=== PATIENT | female | born 1945 | race Hispanic/Latino ===

== ENCOUNTER 2017-08-20 18:29 | Emergency (ER) | payer MEDICARE, BC ==
[2017-08-20 18:40] VITALS: BMI 25.7
[2017-08-20 18:43] VITALS: TEMP 98.3
--- NOTE | 2017-08-20 19:07 | ED PDOC ---
Arrival/HPI <SalbadorNéstor - Last Filed: 08/20/17 21:02> <Julian Farr - Last Filed: 08/20/17 21:12> - General Chief Complaint: Trauma Time Seen by Provider: 08/20/17 18:47 - History of Present Illness Narrative History of Present Illness (Text): PMD: Dr. Greene This patient is a 71yo F w/ a Past medical history of hypertension, hyperlipidemia, depression/anxiety who is coming to the ER after she was walking on the sidewalk and missed her step, fell and hit her head. She denies any loss of consciousness, chest pain, headache, changes in vision, changes in ambulation, changes in speech, abdominal pain, Nausea, vomiting, diarrhea, dysuria, or lower extremity pain. The patient is not on any blood thinners, takes aspirin 81mg daily. Lives at home, alone, walks with cane normally, states diet is good eating "keto" diet. ANOx3. Admits to peeing a little more frequently than previous. (Julian Farr) Past Medical History - Provider Review Nursing Documentation Reviewed: Yes <SalbadorNéstor - Last Filed: 08/20/17 21:02> - Infectious Disease Hx of Infectious Diseases: None - Reproductive Menopause: Yes - Cardiac Hx Cardiac Disorders: Yes Hx Hypertension: Yes Hx Pacemaker: No - Pulmonary Hx Respiratory Disorders: No - Neurological Hx Neurological Disorder: No Hx Paralysis: No - HEENT Hx HEENT Disorder: Yes Other/Comment: glasses - Renal Hx Renal Disorder: No - Endocrine/Metabolic Hx Endocrine Disorders: No - Hematological/Oncological Hx Blood Disorders: No Hx Blood Transfusions: No Hx Blood Transfusion Reaction: No - Integumentary Hx Dermatological Disorder: No - Musculoskeletal/Rheumatological Hx Musculoskeletal Disorders: Yes Hx Arthritis: Yes (walks with cane) - Gastrointestinal Hx Gastrointestinal Disorders: Yes Hx Gall Bladder Disease: Yes Hx Gastroesophageal Reflux: Yes - Genitourinary/Gynecological Hx Genitourinary Disorders: No - Psychiatric Hx Psychophysiologic Disorder: Yes Hx Anxiety: Yes Hx Depression: Yes Hx Emotional Abuse: No Hx Physical Abuse: No Hx Substance Use: No - Surgical History Hx Cholecystectomy: Yes - Anesthesia Hx Anesthesia: Yes Hx Anesthesia Reactions: No Hx Malignant Hyperthermia: No - Suicidal Assessment Feels Threatened In Home Enviroment: No <Julian Farr - Last Filed: 08/20/17 21:12> Family/Social History - Physician Review Nursing Documentation Reviewed: Yes Family/Social History: Unknown Family HX <Néstor Siu - Last Filed: 08/20/17 21:02> Smoking Status: Never Smoked Hx Alcohol Use: Yes (ON OCCASION SOCIALLY) Hx Substance Use: No <Julian Farr - Last Filed: 08/20/17 21:12> Allergies/Home Meds <Néstor Siu - Last Filed: 08/20/17 21:02> <ChikaJulian - Last Filed: 08/20/17 21:12> Allergies/Adverse Reactions: Allergies No Known Allergies Allergy (Verified 08/20/17 18:40) Home Medications: Home Meds Medication Instructions Recorded Confirmed Alprazolam [Xanax Xr] 0.5 mg PO TID PRN 11/28/15 08/20/17 Amlodipine Besylate [Norvasc] 5 mg PO QAM 11/28/15 08/20/17 Aspirin [Ecotrin] 81 mg PO QAM 11/28/15 08/20/17 Rosuvastatin Calcium [Crestor] 10 mg PO DAILY 11/28/15 08/20/17 Sertraline [Zoloft] 100 mg PO DAILY 11/28/15 08/20/17 buPROPion XL [Wellbutrin XL] 300 mg PO QAM 11/28/15 08/20/17 ALPRAZolam [Xanax] 1.5 mg PO DAILY 08/20/17 08/20/17 Esomeprazole Magnesium [Nexium] 40 mg PO DAILY 08/20/17 08/20/17 Review of Systems - Review of Systems Constitutional: absent: Fatigue Eyes: absent: Vision Changes ENT: absent: Hearing Changes Respiratory: absent: SOB Cardiovascular: absent: Chest Pain Gastrointestinal: absent: Abdominal Pain Genitourinary Female: Frequency. absent: Dysuria Musculoskeletal: absent: Arthralgias Skin: absent: Rash Neurological: absent: Headache, Dizziness, Gait Changes, Speech Changes, Facial Droop, Disequilibrium Endocrine: absent: Diaphoresis Hemo/Lymphatic: absent: Adenopathy Psychiatric: absent: Anxiety <Julian Farr - Last Filed: 08/20/17 21:12> Physical Exam Temperature: Afebrile Blood Pressure: Normal Pulse: Regular Appearance: Positive for: Well-Appearing, Non-Toxic Mental Status: Positive for: Alert and Oriented X 3 - Systems Exam Head: Present: Atraumatic Pupils: Present: PERRL Conjunctiva: Present: Normal Mouth: Present: Moist Mucous Membranes Respiratory/Chest: Present: Clear to Auscultation, Good Air Exchange. No: Respiratory Distress, Accessory Muscle Use, Wheezes, Decreased Breath Sounds, Rales Cardiovascular: Present: Regular Rate and Rhythm, Normal S1, S2. No: Murmurs Abdomen: Present: Normal Bowel Sounds. No: Tenderness, Distention Back: Present: Normal Inspection. No: CVA Tenderness Upper Extremity: Present: Normal Inspection. No: Cyanosis, Edema Lower Extremity: Present: Normal Inspection. No: Edema Neurological: Present: GCS=15, CN II-XII Intact, Speech Normal, Gait Normal ( gait was normal without cane) Skin: Present: Warm, Dry Psychiatric: Present: Alert, Oriented x 3 <Julian Farr - Last Filed: 08/20/17 21:12> Vital Signs Temp Pulse Resp BP Pulse Ox 08/20/17 20:52 72 16 148/72 100 08/20/17 18:43 98.3 F 74 18 153/81 H 97 Medical Decision Making - Lab Interpretations I have reviewed the lab results: Yes - RAD Interpretation Tile Finisher: Radiologist <Néstor Siu - Last Filed: 08/20/17 21:02> <Julian Farr - Last Filed: 08/20/17 21:12> ED Course and Treatment: Impression: Pt seen and evaluated with anesthesiology medical doctor. Pt, whose past medical history includes hypertension, hyperlipidemia, depression, and anxiety, presented s/p fall. Pt states she hit her head. Aware and agree with HPI, clinical findings, plan, and management. Plan: -- CT Head w/o contrast -- EKG -- UA, urine cultures -- Macrobid -- Reassess and disposition (Néstor Siu) Will order Head CT and Urinalysis Pt w/ VSS ANOx3 GCS15 w/ normal gait DD: UTI vs Subdural hematoma vs Head Laceration will reassess after CT head 08/20/17 20:10 Urine Shows Leuk Esterase -will give macrobid here -patient can continue for 1wk at home -EKG NSR w/ no ST/T changes -pending head CT 08/20/17 20:57 1. No acute intracranial hemorrhage or acute territorial type infarct. 2. There are scattered foci of hypodensity within the cerebral white matter, likely representing small vessel ischemic disease in a patient this age. 3. Mild atrophy. Will fix laceration above eye with dermabond and steri-strips prepped and cleaned area in sterile fashion 08/20/17 21:08 Laceration fixed with dermabond and steri strips patient tolerated the procedure well patient will go home with 1wk of macrobid BID f/u w/ PMD within the week; Dr. Greene The patient is stable for discharge as per Dr[facility] - Lab Interpretations Lab Results: Lab Results 08/20/17 19:53: Urine Color Yellow, Urine Appearance Clear, Urine pH 6.0, Ur Specific [place] 1.025, Urine Protein Negative, Urine Glucose (UA) Negative, Urine Ketones Negative, Urine Blood Trace-intact H, Urine Nitrate Negative, Urine Bilirubin Negative, Urine Urobilinogen 0.2, Ur Leukocyte Esterase Trace H , Urine RBC 1 - 3, Urine WBC 2 - 5, Ur Epithelial Cells 4 - 5, Amorphous Sediment Few, Urine Bacteria Many, Urine Other Uyeast - RAD Interpretation Radiology Orders: 08/20/17 19:03 HEAD W/O CONTRAST [CT] Stat - Medication Orders Current Medication Orders: Discontinued Medications Nitrofurantoin Macrocrystals (Macrobid) 100 mg PO ONCE STA Stop: 08/20/17 20:11 Last Admin: 08/20/17 20:49 Dose: 100 mg NIHSS Scale ([place]) Time Performed: 19:07 - How Severe is the Stoke Baseline Level of Consciousness: 0=Alert LOC to Questions: 0=Both comments correct LOC to commands: 0=Obeys both correctly Best Gaze: 0=Normal Visual: 0=No visual loss Facial: 0=Normal Motor Arm - Left: 0=No drift Motor Arm - Right: 0=No drift Motor Leg - Left: 0=No drift Motor Leg - Right: 0=No drift Limb Ataxia: 0=Absent Sensory: 0=Normal Best Language: 0=No aphasia Dysarthia: 0=Normal articulation Extinction & Inattention (Neglect): 0=Normal, no object Score: 0 Risk Level: No Stroke Risk <O'chirag,Julian - Last Filed: 08/20/17 21:12> Disposition/Present on Arrival <Néstor Siu - Last Filed: 08/20/17 21:02> - Present on Arrival Any Indicators Present on Arrival: No History of DVT/PE: No History of Uncontrolled Diabetes: No Urinary Catheter: No History of Decub. Ulcer: No History Surgical Site Infection Following: None - Disposition Have Diagnosis and Disposition been Completed?: Yes Disposition Time: 21:09 Patient Plan: Discharge <Julian Farr - Last Filed: 08/20/17 21:12> - Disposition Diagnosis: Laceration Disposition: HOME/ ROUTINE Condition: FAIR Prescriptions: Nitrofurantoin Macrocrystals [Macrobid] 100 mg PO BID #14 cap Referrals: Michelle Greene MD [Primary Care Provider] - Follow up with primary Forms: [employer] (N[place]ien)
[2017-08-20 20:05] LABS: URINE BILIRUBIN NEGATIVE (NEGATIVE); URINE BLOOD TRACE-INTACT (NEGATIVE); URINE GLUCOSE (UA) NEGATIVE (NEGATIVE); URINE KETONE NEGATIVE (NEGATIVE); URINE LEUKOCYTE ESTERASE TRACE Leu/uL (NEGATIVE); URINE PROTEIN NEGATIVE mg/dL (<30 mg/dL); URINE UROBILINOGEN 0.2 E.U./dL (<1 E.U./dL)
[2017-08-20 20:06] LABS: URINE APPEARANCE CLEAR (CLEAR); URINE COLOR YELLOW (YELLOW)
[2017-08-20 20:17] LABS: URINE BACTERIA MANY (NEG)
[2017-08-20 20:18] LABS: URINE AMORPHOUS SEDIMENT FEW
[2017-08-20 20:52] VITALS: BP 148/72; PULSE 72; RESP 16; O2SAT 100
--- NOTE | 2017-08-20 20:56 | CT ---
EXAM: CT Head Without Intravenous Contrast EXAM DATE/TIME: 08/20/2017 7:03 PM CLINICAL HISTORY: The patient age is 71 years old and is female; Injury or trauma; Fall; Initial encounter; Concussion / head injury Facility exam id and description: Ct heads head w/o contrast TECHNIQUE: Axial computed tomography images of the head/brain without intravenous contrast. All CT scans at this facility use one or more dose reduction techniques, viz.: automated exposure control; ma/kV adjustment per patient size (including targeted exams where dose is matched to indication; i.e. head); or iterative reconstruction technique. COMPARISON: No relevant prior studies available. FINDINGS: Brain: There are scattered foci of hypodensity within the cerebral white matter, likely representing small vessel ischemic disease in a patient this age. The acuity of the white matter disease is indeterminate. Tiny physiologic calcifications are visualized within the right globus pallidus. Hypodense dilated perivascular spaces are identified below the basal ganglia, left side greater than right. The white-young differentiation is preserved demonstrating no acute territorial type infarct. There is mild prominence of the ventricles and sulci, compatible with atrophy. No acute intracranial hemorrhage is seen. Midline shift: There is no midline shift. Ventricles: See above. Bones/joints: The calvarium demonstrates no evidence for a depressed fracture. Soft tissues: No acute abnormality. Vasculature: There is atherosclerotic calcification of the cavernous internal carotid arteries and distal right vertebral artery. Sinuses: Unremarkable as visualized. No acute sinusitis. Mastoid air cells: No mastoid effusion. IMPRESSION: 1. No acute intracranial hemorrhage or acute territorial type infarct. 2. There are scattered foci of hypodensity within the cerebral white matter, likely representing small vessel ischemic disease in a patient this age. 3. Mild atrophy.
--- NOTE | 2017-08-21 09:17 | CARD ---
APPROVED REPORT EKG Measurement Heart [id number] <Conclusion> Normal sinus rhythm Normal ECG
== END 2017-08-20 21:35 | disposition home or self-care (01) ==
LOC: ED 18:29
DX: S01.81XA Laceration without foreign body of other part of head, initial encounter (principal); W19.XXXA Unspecified fall, initial encounter; Y92.480 Sidewalk as the place of occurrence of the external cause; E78.5 Hyperlipidemia, unspecified; I10 Essential (primary) hypertension

== ENCOUNTER 2017-08-24 12:43 | Emergency (ER) | payer MEDICARE, BC ==
[2017-08-24 12:55] VITALS: BMI 26.5
[2017-08-24 12:56] VITALS: BP 110/64; PULSE 74; RESP 18; TEMP 97.8; O2SAT 99
--- NOTE | 2017-08-24 13:22 | ED PDOC ---
Arrival/HPI <Julian Farr - Last Filed: 08/24/17 13:19> <Augustin Pope - Last Filed: 08/24/17 13:29> - General Chief Complaint: Wound Check Time Seen by Provider: 08/24/17 12:59 - History of Present Illness Narrative History of Present Illness (Text): 08/24/17 13:19 CC: bleeding wound This patient is a 71yo F w/ a Past medical history of hypertension, hyperlipidemia, depression/anxiety who is coming to the ER after she was walking on the sidewalk and missed her step, fell and hit her head and is here a few days after we fixed her wound because she found a little bit of blood on her sheets and was concerned. She denies any loss of consciousness, chest pain, headache, changes in vision, changes in ambulation, changes in speech, abdominal pain, Nausea, vomiting, diarrhea, dysuria, or lower extremity pain. The patient is not on any blood thinners, takes aspirin 81mg daily. Lives at home, alone, walks with cane normally, states diet is good eating "keto" diet. ANOx3. Admits to peeing a little more frequently than previous. (Julian Farr) Past Medical History - Infectious Disease Hx of Infectious Diseases: None - Cardiac Hx Cardiac Disorders: Yes Hx Hypertension: Yes Hx Pacemaker: No - Pulmonary Hx Respiratory Disorders: No - Neurological Hx Neurological Disorder: No Hx Paralysis: No - HEENT Hx HEENT Disorder: Yes Other/Comment: glasses - Renal Hx Renal Disorder: No - Endocrine/Metabolic Hx Endocrine Disorders: No - Hematological/Oncological Hx Blood Disorders: No Hx Blood Transfusions: No Hx Blood Transfusion Reaction: No - Integumentary Hx Dermatological Disorder: No - Musculoskeletal/Rheumatological Hx Musculoskeletal Disorders: Yes Hx Arthritis: Yes (walks with cane) - Gastrointestinal Hx Gastrointestinal Disorders: Yes Hx Gall Bladder Disease: Yes Hx Gastroesophageal Reflux: Yes - Genitourinary/Gynecological Hx Genitourinary Disorders: No - Psychiatric Hx Psychophysiologic Disorder: Yes Hx Anxiety: Yes Hx Depression: Yes Hx Emotional Abuse: No Hx Physical Abuse: No Hx Substance Use: No - Surgical History Hx Cholecystectomy: Yes - Anesthesia Hx Anesthesia: Yes Hx Anesthesia Reactions: No Hx Malignant Hyperthermia: No - Suicidal Assessment Feels Threatened In Home Enviroment: No <Julian Farr - Last Filed: 08/24/17 13:19> - Provider Review Nursing Documentation Reviewed: Yes <Augustin Pope - Last Filed: 08/24/17 13:29> Family/Social History - Physician Review Nursing Documentation Reviewed: Yes Family/Social History: No Known Family HX Smoking Status: Never Smoked Hx Alcohol Use: Yes (ON OCCASION SOCIALLY) Hx Substance Use: No <Julian Farr - Last Filed: 08/24/17 13:19> Allergies/Home Meds <Julian Farr - Last Filed: 08/24/17 13:19> <Augustin Pope - Last Filed: 08/24/17 13:29> Allergies/Adverse Reactions: Allergies No Known Allergies Allergy (Verified 08/20/17 18:40) Home Medications: Home Meds Medication Instructions Recorded Confirmed Alprazolam [Xanax Xr] 0.5 mg PO TID PRN 11/28/15 08/20/17 Amlodipine Besylate [Norvasc] 5 mg PO QAM 11/28/15 08/20/17 Aspirin [Ecotrin] 81 mg PO QAM 11/28/15 08/20/17 Rosuvastatin Calcium [Crestor] 10 mg PO DAILY 11/28/15 08/20/17 Sertraline [Zoloft] 100 mg PO DAILY 11/28/15 08/20/17 buPROPion XL [Wellbutrin XL] 300 mg PO QAM 11/28/15 08/20/17 ALPRAZolam [Xanax] 1.5 mg PO DAILY 08/20/17 08/20/17 Esomeprazole Magnesium [Nexium] 40 mg PO DAILY 08/20/17 08/20/17 Review of Systems - Physician Review All systems were reviewed & negative as marked: Yes - Review of Systems Constitutional: absent: Fatigue, Weight Change Eyes: absent: Vision Changes ENT: absent: Hearing Changes, Tinnitus Respiratory: absent: SOB, Cough Cardiovascular: absent: Chest Pain, Palpitations Gastrointestinal: absent: Abdominal Pain, Stool Changes Genitourinary Female: absent: Dysuria, Frequency Musculoskeletal: absent: Arthralgias, Back Pain Skin: absent: Rash, Pruritis Neurological: absent: Headache, Dizziness Endocrine: absent: Diaphoresis Hemo/Lymphatic: absent: Adenopathy Psychiatric: absent: Anxiety, Depression <Julian Farr - Last Filed: 08/24/17 13:19> Physical Exam Vital Signs Reviewed: Yes Temperature: Afebrile Blood Pressure: Normal Pulse: Regular Respiratory Rate: Normal Appearance: Positive for: Well-Appearing Pain Distress: None Mental Status: Positive for: Alert and Oriented X 3 - Systems Exam Head: No: Atraumatic (bruise below left eye and wound intact clean dry no pus no pain on palpation well healing ) Pupils: Present: PERRL Extroacular Muscles: Present: EOMI Conjunctiva: Present: Normal Mouth: Present: Moist Mucous Membranes Pharnyx: No: ERYTHEMA, EXUDATE Neck: Present: Normal Range of Motion. No: Meningeal Signs Respiratory/Chest: Present: Clear to Auscultation, Good Air Exchange Cardiovascular: Present: Regular Rate and Rhythm, Normal S1, S2. No: Murmurs Abdomen: No: Tenderness, Distention Back: Present: Normal Inspection. No: CVA Tenderness, Pain with Leg Raise Upper Extremity: No: Normal Inspection, Cyanosis, Edema Lower Extremity: Present: Normal Inspection. No: Edema, CALF TENDERNESS Neurological: Present: GCS=15, CN II-XII Intact Skin: Present: Warm, Dry Psychiatric: Present: Alert, Oriented x 3 <Julian Farr - Last Filed: 08/24/17 13:19> Vital Signs Temp Pulse Resp BP Pulse Ox 08/24/17 12:43 97.8 F 74 18 110/64 99 Medical Decision Making <Julian Farr - Last Filed: 08/24/17 13:19> <Augustin Pope - Last Filed: 08/24/17 13:29> ED Course and Treatment: 08/24/17 13:20 Pt coming here for wound check wound is healing well no signs of pus/drainage or infection; wound is held together well no signs of it coming apart Steri strips re-applied and wound was cleaned with alcohol pads the patient is stable for discharge as per Dr. pope (Julian Farr) 08/24/17 13:28 Rylee Bennett is a 71 year old female who presents to the emergency department for a wound evaluation. She reports to seeing a small amount of blood today. The wound was obtained after falling and hitting her head a few days ago. In agreement with resident note, which includes further HPI details. Patient was seen and evaluated with resident, came up with plan and treatment together. (Augustin Pope) Disposition/Present on Arrival - Present on Arrival Any Indicators Present on Arrival: Yes History of DVT/PE: No History of Uncontrolled Diabetes: No Urinary Catheter: No History of Decub. Ulcer: No History Surgical Site Infection Following: None - Disposition Have Diagnosis and Disposition been Completed?: Yes Disposition Time: 13:21 Patient Plan: Discharge <Julian Farr - Last Filed: 08/24/17 13:19> <Augustin Pope - Last Filed: 08/24/17 13:29> - Disposition Diagnosis: Visit for wound check Disposition: HOME/ ROUTINE Condition: FAIR Discharge Instructions (ExitCare): Laceration (ED) Additional Instructions: If you start to notice extreme swelling, pus, or bleeding that does not stop with pressure please come back to the ED for treatment It was a pleasure treating you I hope you feel better Forms: [facility] (Chinese)
== END 2017-08-24 13:30 | disposition home or self-care (01) ==
LOC: ED 12:43
DX: Z51.89 Encounter for other specified aftercare (principal); E78.5 Hyperlipidemia, unspecified; I10 Essential (primary) hypertension; Z79.82 Long term (current) use of aspirin

== ENCOUNTER 2017-10-19 15:54 | Inpatient (IN) | payer MEDICARE, BC ==
[2017-10-19 15:54] VITALS: BMI 26.5
--- NOTE | 2017-10-19 16:42 | ED PDOC ---
Arrival/HPI - General Chief Complaint: Trauma Time Seen by Provider: 10/19/17 16:24 Historian: Patient - History of Present Illness Narrative History of Present Illness (Text): 10/19/17 16:42 A 71 year old female, whose past medical history includes hypertension, depression and anxiety, presents to the emergency department complaining of left rib pain after fall 5 days ago. Patient reports while getting out of bed she fell landing on her left side and rolling over onto left. Patient states her pain has progressively worsened causing her to come in for further evaluation. She note her pain is exacerbated when coughing or taking deep breaths. Patient took Advil, with no relief. Patient notes cough and congestion for the past few weeks but denies any loss of consciousness, headache, dizziness , neck pain, fever, chills, nausea, vomiting, abdominal pain, urinary symptoms, back pain, chest pain, shortness of breath or any other complaints. Time/Duration: Other (5 days ago) Symptom Course: Worsening Quality: Other Context: Home Past Medical History - Provider Review Nursing Documentation Reviewed: Yes - Infectious Disease Hx of Infectious Diseases: None - Cardiac Hx Cardiac Disorders: Yes Hx Hypertension: Yes Hx Pacemaker: No - Pulmonary Hx Respiratory Disorders: No - Neurological Hx Neurological Disorder: No Hx Paralysis: No - HEENT Hx HEENT Disorder: Yes Other/Comment: glasses - Renal Hx Renal Disorder: No - Endocrine/Metabolic Hx Endocrine Disorders: No - Hematological/Oncological Hx Blood Disorders: No Hx Blood Transfusions: No Hx Blood Transfusion Reaction: No - Integumentary Hx Dermatological Disorder: No - Musculoskeletal/Rheumatological Hx Musculoskeletal Disorders: Yes Hx Arthritis: Yes (walks with cane) - Gastrointestinal Hx Gastrointestinal Disorders: Yes Hx Gall Bladder Disease: Yes Hx Gastroesophageal Reflux: Yes - Genitourinary/Gynecological Hx Genitourinary Disorders: No - Psychiatric Hx Psychophysiologic Disorder: Yes Hx Anxiety: Yes Hx Depression: Yes Hx Emotional Abuse: No Hx Physical Abuse: No Hx Substance Use: No - Surgical History Hx Cholecystectomy: Yes - Anesthesia Hx Anesthesia: Yes Hx Anesthesia Reactions: No Hx Malignant Hyperthermia: No - Suicidal Assessment Feels Threatened In Home Enviroment: No Family/Social History - Physician Review Nursing Documentation Reviewed: Yes Family/Social History: No Known Family HX Smoking Status: Never Smoked Hx Alcohol Use: Yes (ON OCCASION SOCIALLY) Hx Substance Use: No Allergies/Home Meds Allergies/Adverse Reactions: Allergies No Known Allergies Allergy (Verified 08/20/17 18:40) Home Medications: Home Meds Medication Instructions Recorded Confirmed Alprazolam [Xanax Xr] 0.5 mg PO TID PRN 11/28/15 10/19/17 Amlodipine Besylate [Norvasc] 5 mg PO QAM 11/28/15 10/19/17 Aspirin [Ecotrin] 81 mg PO QAM 11/28/15 10/19/17 Rosuvastatin Calcium [Crestor] 10 mg PO DAILY 11/28/15 10/19/17 Sertraline [Zoloft] 100 mg PO DAILY 11/28/15 10/19/17 buPROPion XL [Wellbutrin XL] 300 mg PO QAM 11/28/15 10/19/17 ALPRAZolam [Xanax] 1.5 mg PO DAILY 08/20/17 10/19/17 Esomeprazole Magnesium [Nexium] 40 mg PO DAILY 08/20/17 10/19/17 Review of Systems - Review of Systems Constitutional: Fatigue. absent: Fevers, Night Sweats Eyes: absent: Vision Changes ENT: absent: Hearing Changes Respiratory: SOB Cardiovascular: Chest Pain, BALDWIN, Other (left rib pain) Gastrointestinal: absent: Abdominal Pain, Nausea, Vomiting, Hematemesis Genitourinary Female: absent: Dysuria, Frequency, Hematuria Musculoskeletal: Other (left rib pain). absent: Back Pain, Neck Pain Neurological: absent: Headache, Dizziness, Focal Weakness Endocrine: absent: Polyuria Physical Exam - Physical Exam Narrative Physical Exam (Text): Head: Atraumatic. Normocephalic. Eyes: PERRL. EOMI. Conjunctivae are not pale. ENT: Mucous membranes are moist and intact. Oropharynx is clear and symmetric. No orbital tenderness or deformity. Neck: Supple. Full ROM. No JVD. No lymphadenopathy. Cardiovascular: Regular rate. Regular rhythm. No murmurs, rubs, or gallops. Distal pulses are 2+ and symmetric. Pulmonary/Chest: No evidence of respiratory distress. Diminished breath sounds to left base. No wheezing, rales or rhonchi. Palpable point tenderness to left rib cage. NO crepitus or edema. Abdominal: Soft and non-distended. There is no tenderness. No rebound, guarding, or rigidity. No organomegaly. Good bowel sounds. No left upper quadrant no left lower quadrant pain. Back: No CVA tenderness. Left lateral back pain on palpation. Extremities: No edema. No cyanosis. No clubbing. Full range of motion in all extremities. No calf tenderness. Skin: Skin is warm and dry. No petechiae. No purpura. Neurological: Alert, awake, and oriented. Motor and sensory exam intact. Psychiatric: Good eye contact. Normal interaction, affect, and behavior. 10/19/17 21:32 Vital Signs Reviewed: Yes Vital Signs Temp Pulse Resp BP Pulse Ox 10/19/17 20:04 72 17 109/80 98 10/19/17 18:15 75 17 110/75 100 10/19/17 16:08 97.5 F L 81 18 97/63 L 97 Temperature: Afebrile Blood Pressure: Hypotensive Pulse: Regular Respiratory Rate: Normal Appearance: Positive for: Well-Appearing, Non-Toxic, Uncomfortable Pain Distress: Moderate Mental Status: Positive for: Alert and Oriented X 3 Medical Decision Making ED Course and Treatment: 10/19/17 16:42 Impression: A 71 year old female with left rib pain after fall 5 days ago. Patient notes cough and congestion. Plan includes rib/chest xray and labs. Differential Diagnosis included but are not limited to: Rib fracture vs. Atelectasis vs. PNA Plan: -- Left ribs and chest xray -- Labs -- Urinalysis -- Influenza A B Stat -- Reassess and disposition Progress Notes: Report Date: 10/19/17 20:01 EXAM: CT Chest Without Intravenous Contrast Dictated and Authenticated by: Erwin Yoder MD IMPRESSION: 1. There is patchy consolidation of the left lung base, consistent with atelectatic change or infiltrate. Atelectatic changes are identified at the right lung base. These findings have progressed. Additional atelectasis in is seen within the right middle lobe and lingula. Clinical correlation and follow- up CT in 4-6 weeks is recommended. 2. No lung mass. 3. Old right ninth and 10th rib fractures are visualized. 4. There is a hypodense right thyroid nodule measuring 0.7 x 0.6 cm. 5. Incidental/non-acute findings are described above. Given ct findings, patient will be treated as possible early pneumonia vs. atelectasis. Due to progression of her pain as well as pain with breathing, will admit to med -surg observation for pain management as well as evaluation of abnormal ct ches findings. Patient agreeable to treatment plan. IV antibiotics initiated. Pain meds ordered. 10/19/17 21:33 Reassessment Condition: Re-examined, Improving,but remains with symptoms - Lab Interpretations Lab Results: 10/19/17 17:10 10/19/17 17:10 Lab Results 10/19/17 17:30: Urine Color Light yellow, Urine Appearance Clear, Urine pH 7.0, Ur Specific Parnell 1.010, Urine Protein Negative, Urine Glucose (UA) Negative, Urine Ketones Negative, Urine Blood Negative, Urine Nitrate Negative, Urine Bilirubin Negative, Urine Urobilinogen 0.2, Ur Leukocyte Esterase Negative 10/19/17 17:10: Sodium 140, Potassium 3.7, Chloride 103, Carbon Dioxide 25, Anion Gap 16, BUN 14, Creatinine 1.0, Est GFR ( Amer) > 60, Est GFR (Non- Af Amer) 54, Random Glucose 109, Calcium 9.7, Total Bilirubin 0.6, AST 27, ALT 31, Alkaline Phosphatase 77, Total Protein 7.6, Albumin 4.2, Globulin 3.4, Albumin/Globulin Ratio 1.3 10/19/17 17:10: Influenza Typ A,B (EIA) Negative for flu a/b 10/19/17 17:10: WBC 9.1, RBC 3.99, Hgb 12.1, Hct 36.3, MCV 91.0, MCH 30.3, MCHC 33.3, RDW 14.1, Plt Count 163, MPV 10.5, Gran % 86.3 H, Lymph % (Auto) 6.3 L, Bradford % (Auto) 6.9 H, Eos % (Auto) 0.3 L, Baso % (Auto) 0.2, Gran # 7.85 H, Lymph # 0.6 L, Bradford # 0.6, Eos # 0.0, Baso # 0.02 I have reviewed the lab results: Yes - RAD Interpretation Radiology Orders: 10/19/17 16:42 RIBS LEFT & PA CHEST [RAD] Stat 10/19/17 18:12 CHEST W/O CONTRAST [CT] Stat - EKG Interpretation EKG Interpretation (Text): 10/19/17 21:30 normal sinus rhythm rate of [address] elevations Interpreted by ED Physician: Yes Type: 12 lead EKG - Medication Orders Current Medication Orders: Discontinued Medications Albuterol/Ipratropium (Duoneb 3 Mg/0.5 Mg (3 Ml) Ud) 3 ml IH STAT STA Stop: 10/19/17 20:23 Last Admin: 10/19/17 20:28 Dose: 3 ml Ceftriaxone Sodium (Rocephin 1 Gram Ivpb) 1 gm in 100 mls @ 200 mls/hr IVPB ONCE STA PRN Reason: Protocol Stop: 10/19/17 20:52 Ketorolac Tromethamine (Toradol) 30 mg IVP ONCE ONE Stop: 10/19/17 20:23 Last Admin: 10/19/17 20:42 Dose: 30 mg MAR Pain Assessment Document 10/19/17 20:42 SF (Rec: 10/19/17 20:42 [place] [facility] [id number] Pain Reassessment Is this a pain reassessment? Yes Sleep Is patient sleeping during reassessment? No Presence of Pain Presence of Pain Yes IVP Administration Document 10/19/17 20:42 SF (Rec: 10/19/17 20:42 [place] [facility] [id number] Charges for Administration # of IVP Administrations 1 Tramadol HCl (Ultram) 25 mg PO STAT STA Stop: 10/19/17 19:02 Last Admin: 10/19/17 20:00 Dose: 25 mg MAR Pain Assessment Document 10/19/17 20:00 SF (Rec: 10/19/17 20:01 [place] [facility] [id number][place] Pain Reassessment Is this a pain reassessment? Yes Sleep Is patient sleeping during reassessment? No Presence of Pain Presence of Pain Yes - Scribe Statement The provider has reviewed the documentation as recorded by the Bradfordibdavid Babb Provider Scribe Attestation: All medical record entries made by the Scribdavid were at my direction and personally dictated by me. I have reviewed the chart and agree that the record accurately reflects my personal performance of the history, physical exam, medical decision making, and the department course for this patient. I have also personally directed, reviewed, and agree with the discharge instructions and disposition. Disposition/Present on Arrival - Present on Arrival Any Indicators Present on Arrival: No History of DVT/PE: No History of Uncontrolled Diabetes: No Urinary Catheter: No History of Decub. Ulcer: No History Surgical Site Infection Following: None - Disposition Have Diagnosis and Disposition been Completed?: Yes Diagnosis: Contusion of rib on left side, Atelectasis of left lung, Pneumonia Disposition: HOSPITALIZED Disposition Time: 21:31 Patient Plan: Admission Patient Problems: Current Active Problems Problem Status Onset Atelectasis of left lung Acute Contusion of rib on left side Acute Pneumonia Acute Condition: FAIR Referrals: Loved.la Kaveh Req, [Non-Staff] - Follow up with primary Forms: [employer] (Armenian)
[2017-10-19 17:23] LABS: BASO # 0.02 K/mm3 (0.0-2.0); BASO % 0.2 % (0.0-3.0); EOS % 0.3 % (1.5-5.0); GRAN # 7.85 (1.4-6.5); GRAN % 86.3 % (50.0-68.0); HEMOGLOBIN 12.1 g/dL (12.0-16.0); LYMPH # 0.6 (1.2-3.4); LYMPH % 6.3 % (22.0-35.0); MEAN CORPUSCULAR HEMOGLOBIN 30.3 pg (25.0-35.0); MEAN CORPUSCULAR HGB CONC 33.3 g/dl (31.0-37.0); MEAN PLATELET VOLUME 10.5 fl (7.0-11.0); MONO # 0.6 (0.1-0.6); MONO % 6.9 % (1.0-6.0); RBC 3.99 10^6/uL (3.5-6.1); RED CELL DISTRIBUTION WIDTH 14.1 % (11.5-14.5); WHITE BLOOD COUNT 9.1 10^3/ul (4.5-11.0)
[2017-10-19 17:29] LABS: ALB/GLOB RATIO 1.3 (1.1-1.8); ALBUMIN 4.2 g/dL (3.0-4.8); ALT/SGPT 31 U/L (7-56); AST/SGOT 27 U/L (14-36); BLOOD UREA NITROGEN 14 mg/dL (7-21); CALCIUM 9.7 mg/dL (8.4-10.5); GFR AFRICAN-AMERICAN > 60; GFR NON-AFRICAN AMERICAN 54
[2017-10-19 17:53] LABS: URINE BILIRUBIN NEGATIVE (NEGATIVE); URINE BLOOD NEGATIVE (NEGATIVE); URINE GLUCOSE (UA) NEGATIVE (NEGATIVE); URINE LEUKOCYTE ESTERASE NEGATIVE Leu/uL (NEGATIVE); URINE NITRATE NEGATIVE (NEGATIVE); URINE PROTEIN NEGATIVE mg/dL (<30 mg/dL); URINE UROBILINOGEN 0.2 E.U./dL (<1 E.U./dL)
[2017-10-19 17:55] LABS: URINE APPEARANCE CLEAR (CLEAR); URINE COLOR LIGHT YELLOW (YELLOW)
--- NOTE | 2017-10-19 20:01 | CT ---
EXAM: CT Chest Without Intravenous Contrast EXAM DATE/TIME: 10/19/2017 6:12 PM CLINICAL HISTORY: The patient age is 71 years old and is female; Pain; Chest pain; On breathing; Patient HX: ? Left lower lung mass vs. Effusion; Additional info: ? Left lower lung mass vs. Effusion Facility exam id and description: Ct chests chest w/o contrast TECHNIQUE: Axial computed tomography images of the chest without intravenous contrast. All CT scans at this facility use one or more dose reduction techniques, viz.: automated exposure control; ma/kV adjustment per patient size (including targeted exams where dose is matched to indication; i.e. head); or iterative reconstruction technique. Coronal and sagittal reformatted images were created and reviewed. COMPARISON: CT - CHEST W/O CONTRAST 2016-05-30 13:22 FINDINGS: Lungs: There is patchy consolidation of the left lung base, consistent with atelectatic change or infiltrate. Atelectatic changes are identified at the right lung base. These findings have progressed. Additional atelectasis in is seen within the right middle lobe and lingula. No lung mass. Pleural space: No pneumothorax. No significant effusion. Heart: There is coronary artery calcification. No cardiomegaly. Bones/joints: Old right ninth and 10th rib fractures are visualized. Mild degenerative changes are identified within the thoracic spine. There is mild convexity of the thoracic spine to the right. Vasculature: Atherosclerotic changes are identified of the thoracic aorta and great vessels. The descending thoracic aorta is mildly ectatic measuring 2.9 cm in diameter. Lymph nodes: No significant mediastinal lymphadenopathy. Evaluation of hilar lymph nodes is limited by the absence of intravenous contrast. Gallbladder and bile ducts: Cholecystectomy clips are identified. Thyroid: There is a hypodense right thyroid nodule measuring 0.7 x 0.6 cm. IMPRESSION: 1. There is patchy consolidation of the left lung base, consistent with atelectatic change or infiltrate. Atelectatic changes are identified at the right lung base. These findings have progressed. Additional atelectasis in is seen within the right middle lobe and lingula. Clinical correlation and follow-up CT in 4-6 weeks is recommended. 2. No lung mass. 3. Old right ninth and 10th rib fractures are visualized. 4. There is a hypodense right thyroid nodule measuring 0.7 x 0.6 cm. 5. Incidental/non-acute findings are described above.
[2017-10-19] MEDS ORDERED: Albuterol-Ipratrop 3 mg / 0.5 (3 ml) UD IH STA (20:22)
[2017-10-19] MEDS ORDERED: cefTRIAXone 1 gm 1 GM/100 ML BAG IVPB STA (20:23)
[2017-10-19] MEDS ORDERED: Azithromycin 500MG/NS 250ml 500 MG/250 ML BAG IVPB STA (21:31)
[2017-10-19 21:44] LABS: TROPONIN I < 0.01 ng/mL
[2017-10-19] MEDS ORDERED: Oxycodone/Acetaminophen 5/325 mg Tab PO PRN (22:26)
[2017-10-19] MEDS ORDERED: Levalbuterol 1.25 MG/3 ML Inhal Soln UD IH STA (22:49)
--- NOTE | 2017-10-20 04:50 | HP ---
HISTORY OF PRESENT ILLNESS: The patient is a 71-year-old known to me from office practice. The patient is seen almost a week ago. She tried to get out of bed. She rolled and she fell on her left side. Since then, she has been having left-sided chest pain. Initially, the pain was not that bad, but after 2 to 3 days, pain started to get worse. She was having difficulty taking a deep breath, coughing and sneezing. She took a couple of Tylenol and Advil with no significant pain relief. Did not have any fever or chills. Denies any nausea or vomiting. No cough or congestion. Complaining of generalized weakness. Complaining of back pain and knee pain. PAST MEDICAL HISTORY: Significant for: 1. Hypertension. 2. Hyperlipidemia. 3. Anxiety disorder. 4. History of depression. ALLERGIES: SHE IS NOT ALLERGIC TO ANY MEDICATION. MEDICATIONS AT HOME: She is on Crestor 5 mg daily, Norvasc 5 mg daily, Nexium 40 mg daily, aspirin 81 daily, amlodipine 5 mg daily, bupropion 300 mg daily, and Zoloft 100 mg daily. REVIEW OF SYSTEMS: Significant for left-sided chest pain, gets worse on taking deep breath and certain movements. PHYSICAL EXAMINATION: GENERAL: She is awake, alert, oriented, and communicative. VITAL SIGNS: She is afebrile, pulse 81, respirations 18, blood pressure 110/75. LUNGS: Bilateral fair airflow. Palpable discomfort in the left lower chest area. HEART: S1 and S2 audible. ABDOMEN: Soft and nontender. No rebound and no guarding. NEUROLOGIC: She is awake, alert, oriented, and communicative. LABORATORY EXAM: WBC is 9.1, hemoglobin 12, hematocrit 36, platelet 163. Chemistry: Sodium 140, potassium 3.7, chloride 103, CO2 of 25, BUN 14, creatinine 1.0, and blood sugar of 109. LFTs are within normal limits. Urinalysis is negative. Flu test is negative. CT scan of the chest, there is patchy consolidation in the left lung base consistent with atelectasis changes versus infiltrate. Additional atelectasis is seen within the right mid lobe and lingula. ASSESSMENT: 1. Status post fall. 2. Left rib contusion. 3. Left lower lung patchy infiltration. 4. Hypertension. 5. Hyperlipidemia. PLAN: The patient will be admitted. We will start her on antibiotics, start her on nebulizer treatment, start her on incentive spirometry, and analgesic as needed. We will follow up this patient in the a.m. Michelle Greene MD
[2017-10-20 07:59] LABS: BASO # 0.03 K/mm3 (0.0-2.0); BASO % 0.4 % (0.0-3.0); EOS # 0.1 (0.0-0.7); EOS % 0.8 % (1.5-5.0); GRAN # 5.7 (1.4-6.5); GRAN % 77.8 % (50.0-68.0); HEMOGLOBIN 12.1 g/dL (12.0-16.0); LYMPH # 0.9 (1.2-3.4); LYMPH % 12.8 % (22.0-35.0); MEAN CELL VOLUME 90.4 fl (80.0-105.0); MEAN CORPUSCULAR HEMOGLOBIN 29.8 pg (25.0-35.0); MONO # 0.6 (0.1-0.6); MONO % 8.2 % (1.0-6.0); RBC 4.06 10^6/uL (3.5-6.1); RED CELL DISTRIBUTION WIDTH 14.2 % (11.5-14.5); WHITE BLOOD COUNT 7.3 10^3/ul (4.5-11.0)
[2017-10-20 08:17] LABS: ALB/GLOB RATIO 1.2 (1.1-1.8); ALBUMIN 4.1 g/dL (3.0-4.8); ALT/SGPT 34 U/L (7-56); AST/SGOT 32 U/L (14-36); BLOOD UREA NITROGEN 15 mg/dL (7-21); CALCIUM 9.3 mg/dL (8.4-10.5); GFR AFRICAN-AMERICAN > 60; GFR NON-AFRICAN AMERICAN > 60
[2017-10-20] MEDS: buPROPion 300 mg/24 Hours XL Tab PO SCH (09:26)
--- NOTE | 2017-10-20 09:27 | RAD ---
PROCEDURE: Radiographs of the Chest and Left Ribs. HISTORY: left rib pain after fall COMPARISON: None available. TECHNIQUE: Frontal radiograph of the chest and multiple oblique radiographs of the left ribs were obtained. FINDINGS: LEFT RIBS: No fracture or focal lesion visualized. LUNGS: Clear. PLEURA: No pneumothorax or pleural fluid. CARDIOVASCULAR: Normal sized heart. No pulmonary vascular congestion. OTHER FINDINGS: None. IMPRESSION: Unremarkable radiographs of the chest and left ribs. No left rib fracture.
[2017-10-20] MEDS: Azithromycin 500MG/NS 250ml 500 MG/250 ML BAG IVPB SCH (09:29)
--- NOTE | 2017-10-20 10:02 | CARD ---
APPROVED REPORT EKG Measurement Heart [id number] <Conclusion> Normal sinus rhythm NSSTW changes Mildly prolonged QTc
[2017-10-20] MEDS: cefTRIAXone 1 gm 1 GM/100 ML BAG IVPB SCH (11:55)
[2017-10-20] MEDS: Lidocaine 5% Patch TD SCH (13:00)
[2017-10-20] MEDS ORDERED: Promethazine DM 6.25 mg-15 mg/5 ml Syrup PO PRN (14:37)
--- NOTE | 2017-10-20 19:37 | PN ---
DATE: SUBJECTIVE: The patient is 81-year-old seen and examined, complaining of left-sided chest pain, complain of cough and congestion. No nausea, vomiting or diarrhea. PHYSICAL EXAMINATION: VITAL SIGNS: She is afebrile, pulse 65, respiration 20, blood pressure 136/70. LUNGS: Bilateral fair airflow. No rhonchi or crackles. HEART: S1 and S2 audible. ABDOMEN: Soft and nontender. EXTREMITIES: Bilateral leg, no edema. LABORATORY DATA: WBC is 7.3, hemoglobin 12, hematocrit 36, platelets 179. Chemistry: Sodium 141, potassium 3.8, chloride 105, CO2 of 24, BUN 15, creatinine 0.9, blood sugar of 92. LFTs are within normal limits. Urinalysis is unremarkable. Flu test is negative. ASSESSMENT: 1. Status post fall with left chest contusion. 2. Community-acquired pneumonia. 3. Hypertension. 4. Hyperlipidemia. PLAN: We will continue the patient on current medication. We will give her antitussive. I will give her analgesic, I will apply 5% Lidoderm patch to the area. We will reevaluate in a.m. and follow up the patient in a.m. Michelle Greene MD
[2017-10-21] MEDS: Lidocaine 5% Patch TD SCH (09:05)
[2017-10-21] MEDS: buPROPion 300 mg/24 Hours XL Tab PO SCH (09:08)
[2017-10-21] MEDS: cefTRIAXone 1 gm 1 GM/100 ML BAG IVPB SCH (09:08)
[2017-10-21] MEDS: Azithromycin 500MG/NS 250ml 500 MG/250 ML BAG IVPB SCH (09:57)
[2017-10-21] MEDS: Promethazine 6.25 MG/5 ML CUP PO SCH (17:58)
[2017-10-22] MEDS: Promethazine 6.25 MG/5 ML CUP PO SCH ×5 (00:14→23:05)
--- NOTE | 2017-10-22 09:22 | PN ---
DATE: 10/21/2017 SUBJECTIVE: The patient is a 71-year-old, seen and examined, still has left lower-sided chest pain, still complains of cough. No nausea or vomiting. No fever, no chills. PHYSICAL EXAMINATION: VITAL SIGNS: She is afebrile. Pulse 61, respirations 18, blood pressure 137/81. LUNGS: Bilateral fair airflow. No rhonchi or crackle. HEART: S1 and S2 audible. ABDOMEN: Soft, nontender. No rebound. No guarding. NEUROLOGIC: The patient is awake, alert, oriented, communicative, ambulatory. CHEST: She has slight palpable discomfort in the left lateral chest area. LABORATORY EXAMINATION: There is no new lab available today. Procalcitonin is 0.09. Serology for flu is negative. Blood culture and urine cultures are negative. CT scan of the chest shows patchy consolidation of the left lung base consistent with atelectatic changes versus infiltrate. ASSESSMENT: 1. Left lower lobe pneumonia. 2. Status post fall and left chest contusion. 3. Hypertension. 4. Hyperlipidemia. 5. Anxiety disorder. PLAN: Currently, the patient is on Mobic and 5% Lidoderm patch. She is on Rocephin and Zithromax, we will continue that. We will give her promethazine every 6 hours round the clock and I will reevaluate in the a.m. and make discharge plan if she is stable in the a.m. Michelle Greene MD
[2017-10-22] MEDS: buPROPion 300 mg/24 Hours XL Tab PO SCH (09:45)
[2017-10-22] MEDS: Lidocaine 5% Patch TD SCH (09:46)
[2017-10-22] MEDS: Azithromycin 500MG/NS 250ml 500 MG/250 ML BAG IVPB SCH (09:47)
[2017-10-22] MEDS: cefTRIAXone 1 gm 1 GM/100 ML BAG IVPB SCH (12:01)
--- NOTE | 2017-10-22 19:49 | PN ---
DATE: SUBJECTIVE: The patient is a 71-year-old, seen and examined, still has left-sided chest pain and hurts in certain position. No nausea, vomiting, or diarrhea. Still have cough and congestion. PHYSICAL EXAMINATION: VITAL SIGNS: She is afebrile, pulse 61, respirations 20, and blood pressure 114/71. LUNGS: Bilateral fair airflow. No rhonchi or crackles. HEART: S1 and S2 audible. ABDOMEN: Soft and nontender. No rebound. No guarding. NEUROLOGIC: The patient is awake, alert, oriented, communicative, and ambulatory. ASSESSMENT: 1. Left-sided chest pain. 2. Status post fall. 3. Left chest contusion. 4. Asthmatic bronchitis. 5. Left lower lobe pneumonia. 6. Hypertension. 7. Hyperlipidemia. PLAN: I will order for thoracic spine x-ray to rule out spine thoracic vertebral fracture. I will continue her on Lidoderm patch. We will give her Percocet. We will continue all other medication and reevaluate the patient in a.m. The patient lives alone discharge. She is still unstable, she still have unstable gait, and I will request for TCU evaluation. Once she is accepted, she can be transferred to TCU. Michelle Greene MD
[2017-10-23] MEDS: Promethazine 6.25 MG/5 ML CUP PO SCH ×4 (06:29→23:46)
[2017-10-23] MEDS: Lidocaine 5% Patch TD SCH (09:19)
[2017-10-23] MEDS: buPROPion 300 mg/24 Hours XL Tab PO SCH (09:19)
[2017-10-23] MEDS: cefTRIAXone 1 gm 1 GM/100 ML BAG IVPB SCH (10:07)
[2017-10-23 11:18] LABS: HEMOGLOBIN 11.3 g/dL (12.0-16.0); MEAN CELL VOLUME 89.9 fl (80.0-105.0); MEAN CORPUSCULAR HEMOGLOBIN 30.1 pg (25.0-35.0); MEAN CORPUSCULAR HGB CONC 33.4 g/dl (31.0-37.0); MEAN PLATELET VOLUME 10.5 fl (7.0-11.0); RBC 3.76 10^6/uL (3.5-6.1); RED CELL DISTRIBUTION WIDTH 13.8 % (11.5-14.5); WHITE BLOOD COUNT 6.5 10^3/ul (4.5-11.0)
[2017-10-23 11:22] LABS: ALB/GLOB RATIO 1.2 (1.1-1.8); ALBUMIN 3.8 g/dL (3.0-4.8); ALT/SGPT 30 U/L (7-56); AST/SGOT 27 U/L (14-36); BLOOD UREA NITROGEN 14 mg/dL (7-21); CALCIUM 9.2 mg/dL (8.4-10.5); GFR AFRICAN-AMERICAN > 60; GFR NON-AFRICAN AMERICAN > 60
--- NOTE | 2017-10-23 14:35 | RAD ---
HISTORY: left mid chest pain COMPARISON: No prior. FINDINGS: BONES: Alignment maintained. No fracture. DISC SPACES: Normal. SOFT TISSUES: Normal. OTHER FINDINGS: None. IMPRESSION: Normal radiographs of the thoracic spine.
[2017-10-23] MEDS: POLYETHYLENE GLYCOL 3350 17 GM/Dose PACKET PO SCH (18:15)
--- NOTE | 2017-10-23 21:23 | PN ---
DATE: SUBJECTIVE: The patient is 71-year-old, seen and examined. States she feels little better, still has difficulty getting out of bed, complained of left-sided chest pain more on mobility and feel wobbly on walking. PHYSICAL EXAMINATION VITAL SIGNS: She is afebrile, pulse 60, respirations 20, blood pressure 139/71. LUNGS: Bilateral fair airflow. No rhonchi or crackle. HEART: S1 and S2 audible. ABDOMEN: Soft, nontender. No rebound or guarding. NEUROLOGIC: The patient is awake, alert, able to communicate, ambulatory. LABORATORY DATA: WBC 6.5, hemoglobin 11.3, hematocrit 33.8, platelet of 208. Chemistry; sodium 138, potassium 3.7, chloride 103, CO2 of 24, BUN 14, creatinine 0.9, blood sugar of 128. Flu test is negative. Blood culture and urine cultures are negative. Thoracic spine x-ray was done that shows normal radiograph of the thoracic spine. ASSESSMENT AND PLAN: 1. Status post fall. 2. Left chest contusion. 3. Hypertension. 4. Left lower lobe pneumonia. 5. Hyperlipidemia. 6. Hypertension. 7. History of constipation. PLAN: We will continue the patient on lidocaine patch, continue on MiraLax. She is on Mobic. We will continue her on amlodipine. She is getting nebulizer treatment. She is on Zithromax and Rocephin. We will continue that and the patient has been referred to TCU, once accepted, she will be transferred to TCU. Michelle Greene MD
[2017-10-24] MEDS: Promethazine 6.25 MG/5 ML CUP PO SCH ×3 (05:48→17:44)
[2017-10-24] MEDS: buPROPion 300 mg/24 Hours XL Tab PO SCH (09:00)
[2017-10-24] MEDS: cefTRIAXone 1 gm 1 GM/100 ML BAG IVPB SCH (09:02)
[2017-10-24] MEDS: Lidocaine 5% Patch TD SCH (09:02)
[2017-10-24] MEDS: POLYETHYLENE GLYCOL 3350 17 GM/Dose PACKET PO SCH ×2 (09:02→17:35)
--- NOTE | 2017-10-24 14:24 | IP.NPCORE ---
Pneumonia Progress Notes - Oxygenation Assessment (REQUIRED) O2 Saturation: 95 Date: 10/23/17 - Blood Cultures (REQUIRED) Culture drawn: Yes Date:: 10/19/17 Time:: 20:00 - Initial Antibiotic Initial Antibiotic given within Four Hours:: Yes Date:: 10/19/17 - Appropriate Antibiotic Appropriate Antibiotic within 24 hours of Admission:: Yes Date:: 10/19/17 Current Antibiotic: Rocephin No change in antibiotics: Yes - Pneumonia Vaccine Pneumonia Vaccine: No (patient doesnt remember, several years ago) - Smoking Cessation Smoking Cessation counseling provided:: No Ex-Smoker (has not smoked in the last 12 months): No Current Smoker - smoking cessation education provided: No
[2017-10-24 16:53] VITALS: RESP 20
--- NOTE | 2017-10-25 00:06 | PN ---
DATE: SUBJECTIVE: The patient is a 71-year-old, seen and examined, doing well, eating and tolerating, minimal pain in the left lower chest, cough seems to be improved. PHYSICAL EXAMINATION: VITAL SIGNS: She is afebrile, pulse 71, respirations 20, and blood pressure 131/75. LUNGS: Bilateral good airflow. No rhonchi or crackles. HEART: S1 and S2 audible. ABDOMEN: Soft and nontender. No rebound. No guarding. NEUROLOGIC: The patient is awake, alert, oriented and communicative. She has palpable discomfort in the left lower chest area. LABORATORY EXAMINATION: WBC 6.5, hemoglobin 11.3, hematocrit 33.8, platelets of 208. Chemistry: Sodium 138, potassium 3.7, chloride 103, CO2 of 24, BUN 14, creatinine 0.9, blood sugar of 128. Urinalysis is unremarkable. ASSESSMENT: 1. Status post fall. 2. Left rib contusion. 3. Left lower lobe infiltrate. 4. Asthmatic bronchitis. PLAN: The patient is currently on Zithromax and Rocephin, seems to be stable, does not want to go to rehab, will be discharged home tomorrow morning. Michelle Greene MD
[2017-10-25] MEDS: Promethazine 6.25 MG/5 ML CUP PO SCH ×3 (00:59→14:28)
[2017-10-25 09:24] VITALS: BP 145/74; PULSE 58; TEMP 97.8; O2SAT 99
[2017-10-25] MEDS: buPROPion 300 mg/24 Hours XL Tab PO SCH (10:14)
[2017-10-25] MEDS: cefTRIAXone 1 gm 1 GM/100 ML BAG IVPB SCH (10:17)
[2017-10-25] MEDS: Lidocaine 5% Patch TD SCH (10:17)
[2017-10-25] MEDS: POLYETHYLENE GLYCOL 3350 17 GM/Dose PACKET PO SCH ×2 (10:17→10:52)
[2017-10-25] MEDS ORDERED: Influenza Vaccine 60 mcg/0.5 mL SYR (4YR UP) IM ONE (13:41)
--- NOTE | 2017-10-26 04:25 | DS ---
HISTORY OF PRESENT ILLNESS: The patient is 71-year-old, seen and examined, doing better, still has left sided chest pain, more on mobility. PHYSICAL EXAMINATION: VITAL SIGNS: She is afebrile, pulse 50, respirations 20, blood pressure 145/74. LUNGS: Bilateral fair airflow. No rhonchi or crackle. HEART: S1, S2, audible. ABDOMEN: Abdomen is soft, nontender. No rebound or guarding. NEUROLOGICAL: The patient is awake, alert, and oriented. Able to communicate. LABORATORY DATA: WBC is 6.5, hemoglobin 11.3, hematocrit 33.8, platelet of 208. Chemistry, sodium 138, potassium 3.7, chloride 103, CO2 of 24, BUN 14, creatinine 1.9, blood sugar of 128. Urinalysis is unremarkable. ASSESSMENT: 1. Status post fall. 2. Left chest contusion. 3. History of anxiety disorder. 4. Hypertension. 5. Hyperlipidemia. 6. Left lower lobe atelectasis, also pneumonia. 7. Asthmatic bronchitis. PLAN: The patient is being discharged home on Levaquin 500 daily for 3 more days, Mobic 15 mg daily, and Lidoderm patch. She will followup in office in a week or two. Michelle Greene MD
[2017-10-26] MEDS ORDERED: Cefpodoxime (Vantin) 200 mg Tab PO SCH (10:00)
== END 2017-10-25 15:14 | disposition home or self-care (01) | DRG 194 ==
LOC: ED 15:54 → ERH 22:06 → 3RNO 22:55 → OBSVTOIN 10-22 09:20
PROVIDERS: ADMIT Internal Medicine; ATTEND Internal Medicine
DX: J18.9 Pneumonia, unspecified organism (principal); J98.11 Atelectasis; E04.1 Nontoxic single thyroid nodule; E78.5 Hyperlipidemia, unspecified; S20.212A Contusion of left front wall of thorax, initial encounter; W06.XXXA Fall from bed, initial encounter; I10 Essential (primary) hypertension; F32.9 Major depressive disorder, single episode, unspecified; F41.9 Anxiety disorder, unspecified; M54.9 Dorsalgia, unspecified; M25.569 Pain in unspecified knee; K21.9 Gastro-esophageal reflux disease without esophagitis; J45.909 Unspecified asthma, uncomplicated; K59.00 Constipation, unspecified; Y92.092 Bedroom in other non-institutional residence as the place of occurrence of the external cause; Y93.89 Activity, other specified; Z79.82 Long term (current) use of aspirin; Z79.899 Other long term (current) drug therapy